=== PATIENT | female | born 1980 | race American Indian/Alaskan Native ===

== ENCOUNTER 2020-07-24 09:57 | Emergency (ER) | payer MEDICAID | END 2020-07-24 10:00 | disposition left against medical advice (07) | LOC: ED 09:57 | DX: J02.9 Acute pharyngitis, unspecified (principal); Z53.21 Procedure and treatment not carried out due to patient leaving prior to being seen by health care provider ==

== ENCOUNTER 2022-01-10 11:35 | Day surgery (SDC) | payer MEDICAID ==
[~2022-01-10 11:35] MED LIST: SODIUM CHLORIDE 0.9% 1000 ML 1,000 ML IV SCH
--- NOTE | 2022-01-10 12:14 | Anesthesia Day of Surgery ---
Anesthesia Day of Surgery - Day of Surgery Patient Examined: Yes Patient H&P Reviewed: Yes Patient is NPO: Yes
--- NOTE | 2022-01-10 12:15 | Anesthesia Consultation ---
Anesthesia Consult and Med Hx Date of service: 01/10/22 - Airway Anesthetic Teeth Evaluation: Good ROM Head & Neck: Adequate Mental/Hyoid Distance: Adequate Mallampati Class: Class I Intubation Access Assessment: Good - Pulmonary Exam CTA: Yes - Cardiac Exam Cardiac Exam: RRR - Pre-Operative Health Status ASA Pre-Surgery Classification: ASA2 Proposed Anesthetic Plan: MAC - Pulmonary Hx Smoking: Yes Hx Asthma: Yes - Gastrointestinal Hx Ulcer: Yes - Endocrine Hx Liver Disease: Yes (fatty liver)
[2022-01-10] MEDS ORDERED: propofoL 200 MG/20 ML VIAL IV ONE ×2 (12:17→12:22)
[2022-01-10] MEDS ORDERED: LIDOCAINE MPF (2%) 20 MG/1 ML VIAL 5 ML ONE (12:30)
--- NOTE | 2022-01-10 12:39 | Short Stay Summary ---
Short Stay Documentation Date of service: 01/10/22 - History H&P: obtained from office - Allergies and Medications Current Medications: Allergies pollen extracts Allergy (Verified 12/26/21 11:48) Unknown sertraline [From Zoloft] Allergy (Verified 12/26/21 11:48) Unknown shellfish derived Allergy (Verified 12/26/21 11:48) Unknown Active Medications Sodium Chloride (Nacl 0.9% 1000 Ml) 1,000 mls @ 50 mls/hr IV DIRECT DONOVAN - Physical exam General appearance: no acute distress Integumentary: no rash HEENT: Atraumatic Lungs: Clear to auscultation Heart: Regular rate Gastrointestinal: normal Extremities: no ischemia, No edema Neurological: Normal gait, Normal speech - Brief post op/procedure progress note Date of procedure: 01/10/22 Pre-op diagnosis: Reflux including regurgitation of food. Post-op diagnosis: other (Same with small hiatal hernia and duodenitis.) Anesthesia: [facility] [place] Surgeon: ARAMIS AYON Estimated blood loss: none Pathology: list (Biopsy of duodenitis biopsy of pylorus for H. pylori) Specimen disposition: to lab Condition: stable - Disposition Condition at discharge: Good Disposition: 01 HOME / SELF CARE / HOMELESS Short Stay Discharge Plan Weight Bearing Status: Full Weight Bearing Diet: regular Follow up with: SHERICE OCHOA MD [Primary Care Provider] - 7 Days ARAMIS AYON MD [Staff Physician] - 7 Days
--- NOTE | 2022-01-10 12:41 | Operative Report ---
Operative Report Operative Report: Date: 01/10/2022 Preop diagnosis: Epigastric pain, GERD Postop diagnosis: Same with hiatal hernia and duodenitis Procedure: Esophagogastroduodenoscopy with biopsy of antrum and duodenum Surgeon: Dr. Dasilva Anesthesia: MAC IV sedation Specimen: Biopsy of antrum for H. pylori and biopsy of the LES, biopsy of duodenitis Estimated blood loss: Less than 5 cc. Procedure: Patient is taken into the endoscopic suite. Timeouts are completed. Under IV sedation and monitored anesthesia care bite block is placed. The flexible upper endoscope was advanced through the hypopharynx, and cricopharyngeus. Cords are visualized and are normal. The scope was advanced through the thoracic esophagus which is normal. The LES is visualized at 38 cm. There is no signs of advanced erosions no tumors. Scope was advanced through the LES and retroflexed. Small hiatal hernia seen. Scope was returned to forward-looking position and advanced through the midportion of the stomach where the antrum and incisura are visualized and are normal. A biopsy of the antrum was obtained for H. pylori. Scope was advanced through the pylorus and second and third portion of the duodenum are visualized. Duodenitis is found and biopsied. The scope was then withdrawn. The procedure is ended.
[2022-01-10] MEDS ORDERED: ONDANSETRON 4 MG/2 ML INJ ONE (13:00)
[2022-01-10 15:24] VITALS: BP 121/79
== END 2022-01-10 13:15 | disposition home or self-care (01) ==
LOC: GIO 11:35
PROVIDERS: ATTEND Surgery
DX: R10.13 Epigastric pain (principal); K21.9 Gastro-esophageal reflux disease without esophagitis; K44.9 Diaphragmatic hernia without obstruction or gangrene; K29.80 Duodenitis without bleeding; F32.9 Major depressive disorder, single episode, unspecified; F41.9 Anxiety disorder, unspecified; J45.909 Unspecified asthma, uncomplicated; K31.89 Other diseases of stomach and duodenum; F17.210 Nicotine dependence, cigarettes, uncomplicated; Z91.040 Latex allergy status; Z91.013 Allergy to seafood; Z88.8 Allergy status to other drugs, medicaments and biological substances; Z90.49 Acquired absence of other specified parts of digestive tract; Z90.710 Acquired absence of both cervix and uterus; Z98.890 Other specified postprocedural states
CPT/HCPCS: 43239; 88305; 88342; J2405; J2704; J7030